=== PATIENT | female | born 1955 | race Caucasian/White ===

== ENCOUNTER 2017-05-01 07:51 | Outpatient (CLI) | payer BC ==
--- NOTE | 2017-05-01 13:53 | CT ---
CT ABDOMEN AND PELVIS WITH IV AND ORAL CONTRAST: HISTORY: Abdominal pain. Left abdominal lump. FINDINGS: No comparison. The lung bases are clear. The liver, spleen, kidneys, right adrenal gland, and pancr eas have a normal CT appearance. At the lateral limb of the left adrenal gland is a well-circumscrib ed 1.3 cm mass that is less dense than the surrounding adrenal tissue. While it is incompletely dianne acterized on this exam, it likely represents an adrenal adenoma. Postoperative changes of the stomac h are apparent. There are degenerative changes of the lumbar spine. Retroaortic left renal vein is apparent. Urinary bladder is incompletely distended. Diverticula arise from the colon without adjac ent inflammation. No defect of the anterior abdominal wall is apparent. No subcutaneous masses are visible at the left anterior abdomen. Dystrophic calcification is present within the subcutaneous fat of each flank. IMPRESSION: 1. No evidence of abdominal wall hernia or mass. 2. Diverticulosis. No evidence of diverticulitis. POS: [facility]
[2017-05-01] MEDS ORDERED: Iopamidol 370 76% 100 ML VIAL ONE (16:38)
== END 2017-05-01 07:52 | disposition home or self-care (01) ==
LOC: RAD-BREN 07:51
PROVIDERS: ATTEND Family Medicine
DX: R10.9 Unspecified abdominal pain (principal); K57.90 Diverticulosis of intestine, part unspecified, without perforation or abscess without bleeding
CPT/HCPCS: 74177

== ENCOUNTER 2020-08-03 07:46 | Outpatient (CLI) | payer BC | END 2020-08-03 07:47 | disposition home or self-care (01) | LOC: SCSRAD 07:46 | PROVIDERS: ATTEND Family Medicine | DX: M25.521 Pain in right elbow (principal) ==